=== PATIENT | female | born 1990 ===

== ENCOUNTER → 2025-01-21 08:17 | Outpatient (CLI) | payer BC, SELFPAY ==
[2025-01-23 15:36] LABS: QuantiFERON Mitogen Value >10.00 IU/mL (.); QuantiFERON Nil Value 0.07 IU/mL (.); QuantiFERON TB Gold Plus Negative (Negative); QuantiFERON TB1 Ag Value 0.06 IU/mL (.); QuantiFERON TB2 Ag Value 0.06 IU/mL (.)
== END ==
LOC: LAB 08:17
PROVIDERS: PCP Family Medicine; Visit Provider Physician Assistant
DX: Z11.1 Encounter for screening for respiratory tuberculosis (principal)
CPT/HCPCS: 86480

== ENCOUNTER → 2025-01-22 10:58 | Outpatient (CLI) | payer BC, SELFPAY ==
[2025-01-22 20:07] LABS: Hepatitis B Surface Antigen NEGATIVE s/c (NEGATIVE)
== END ==
PROVIDERS: PCP Family Medicine; Visit Provider Physician Assistant
DX: Z78.9 Other specified health status (principal)
CPT/HCPCS: 86787; 87340